=== PATIENT | male | born 1975 | race Caucasian/White ===

== ENCOUNTER 2019-07-18 10:07 | Emergency (ER) | payer BC ==
[~2019-07-18] VITALS: Ht 182.9 cm; Wt 102.1 kg
[~2019-07-18 10:07] MED LIST: ATOR40TA PO
--- NOTE | 2019-07-18 10:20 | NUR ---
LEFT SIDED CHEST PAIN X 1 HOUR. PATIENT A/OX4, BREATHING EVEN AND UNLABORED, NO SOB NOTED, NEEDS ATTENDED. ATTACHED TOT HE HAND COUNTER.
--- NOTE | 2019-07-18 10:30 | NUR ---
PATIENT SEEN BY DR. DUBOSE.
[2019-07-18 10:35] LABS: BASOPHILS # (AUTO) 0.1 /CMM (0.0-0.2); BASOPHILS % (AUTO) 0.8 % (0.0-2.0); EOSINOPHILS % (AUTO) 0.4 % (0.0-6.0); HEMATOCRIT 45 % (39-51); HEMOGLOBIN 14.8 g/dL (13.5-17.5); LYMPHOCYTES # (AUTO) 2.6 /CMM (0.8-4.8); LYMPHOCYTES % (AUTO) 31.6 % (20.0-44.0); MEAN CORPUSCULAR HGB CONC 33 g/dl (31.0-36.0); MEAN CORPUSCULAR VOLUME 93 fL (80-96); MONOCYTES # (AUTO) 0.7 /CMM (0.1-1.30); MONOCYTES % (AUTO) 8.4 % (2.0-12.0); NEUTROPHILS # (AUTO) 4.8 /CMM (1.8-8.9); NEUTROPHILS % (AUTO) 58.8 % (43.0-81.0); PLATELET COUNT (AUTO) 240 /CMM (150-450); RED BLOOD CELL COUNT(AUTO) 4.81 MIL/uL (4.5-6.0); WHITE BLOOD COUNT (AUTO) 8.1 K/uL (4.3-11.0)
[2019-07-18 10:46] LABS: CALCIUM, SERUM 8.7 mg/dL (8.5-10.1); CARBON DIOXIDE 29 mmol/L (21-32); CHLORIDE 104 mmol/L (98-107); GLUCOSE 99 mg/dL (74-106); POTASSIUM 4.1 mmol/L (3.5-5.1); SODIUM SERUM 141 mmol/L (136-145); UREA NITROGEN, BLOOD 17 mg/dL (7-18)
[2019-07-18 10:59] LABS: ALANINE AMINOTRANSFERASE 62 U/L (12-78); ALBUMIN 4.1 g/dL (3.4-5.0); ALKALINE PHOSPHATASE 63 U/L (46-116); ASPARTATE AMINOTRANSFERASE 23 U/L (15-37); B-TYPE NATRIURETIC PEPTIDE 24 PG/ML (0-125); BILIRUBIN,DIRECT 0.2 mg/dL (0.0-0.2); TOTAL PROTEIN, SERUM 7.6 g/dL (6.4-8.2)
--- NOTE | 2019-07-18 11:50 | NUR ---
PATIENT DENIES PAIN AT THIS TIME.
--- NOTE | 2019-07-18 12:00 | NUR ---
IV removed. Catheter intact and site benign. Pressure and 4x4 applied to site. No bleeding noted. Patient discharged to home in stable condition. Written and verbal after care instructions given. Patient verbalizes understanding of instruction.
[2019-07-18 12:09] VITALS: BP 145/97
== END 2019-07-18 12:09 | disposition home or self-care (01) ==
LOC: ER 10:08
DX: R07.89 Other chest pain (principal); R00.2 Palpitations; E78.00 Pure hypercholesterolemia, unspecified; Z79.899 Other long term (current) drug therapy
CPT/HCPCS: 36415; 71045-TC; 80048-TC; 80076-TC; 83690-TC; 83880; 84484-TC; 85025-TC